=== PATIENT | male | born 1965 | race Caucasian/White ===

== ENCOUNTER 2018-03-28 02:35 | Inpatient (IN) | END 2018-03-30 16:11 | disposition home or self-care (01) | DRG 392 ==

== ENCOUNTER 2018-07-06 07:34 | Emergency (ER) | END 2018-07-06 08:49 | disposition home or self-care (01) ==

== ENCOUNTER 2018-11-08 19:46 | Emergency (ER) | payer BC ==
[~2018-11-08] VITALS: Wt 77.9 kg
[~2018-11-08 19:46] MED LIST: DOCU-144 PO; ESCI10TA PO; IBUP800T48 PO; METO-335 PO; PANT40TA3 PO; THIA100T56 PO; TRAM50TA2 PO
[2018-11-08] MEDS ORDERED: KETOROLAC 15 MG INJ IV STA (22:59)
[2018-11-08] MEDS ORDERED: AZITHROMYCIN 500MG/NS (PMX) 250 ML IV STA (22:59)
[2018-11-08] MEDS ORDERED: SOD CHLORIDE 0.9% 1,000 ML IV STA (22:59)
[2018-11-08] MEDS ORDERED: ONDANSETRON 4 MG INJ IV STA (22:59)
[2018-11-08] MEDS ORDERED: CEFTRIAXONE 1 GM/50 ML (PMX) 50 ML IVPB STA (22:59)
[2018-11-09] MEDS ORDERED: IBUP-1542 PO (00:38)
[2018-11-09] MEDS ORDERED: LEVO750T25 PO (00:38)
--- NOTE | 2018-11-09 00:39 | ERD ---
ER Documentation Chief Complaint Chief Complaint FEVER AND ABD PAIN FOR 1 WK. BLURRY VISION. ABD SWELLING, HX OF CIRRHOSIS HPI 53-year-old male presenting with cough, nasal congestion, sneezing, and sore throat for the past 1 week. For the past few days he has also had fever. He also complains of right lateral chest and abdominal pain with movement, started after he was coughing. He denies any other abdominal pain. He has brownish mucus when he coughs. No shortness of breath or chest pain. He does have chronic vomiting daily for about 1 year. No diarrhea or constipation. ROS All systems reviewed and are negative except as per history of present illness. Medications Home Meds Active Scripts Ibuprofen* (Motrin*) 600 Mg Tab, 600 MG PO Q6H PRN for PAIN AND OR ELEVATED TEMP, #30 TAB Prov:KAREN YOO MD 11/09/18 Levofloxacin* (Levaquin*) 750 Mg Tablet, 750 MG PO DAILY for 5 Days, TAB Prov:KAREN YOO MD 11/09/18 Tramadol HCl (Tramadol HCl) 50 Mg Tablet, 50 MG PO Q6 PRN for PAIN, #20 TAB Prov:ELENO GRISSOM PA-C 07/06/18 Ibuprofen* (Motrin*) 800 Mg Tab, 800 MG PO Q6, #30 TAB Prov:ELENO GRISSOM PA-C 07/06/18 Docusate Sodium* (Colace*) 100 Mg Capsule, 100 MG PO TID, #30 CAP Prov:ELENO GRISSOM PA-C 07/06/18 Escitalopram Oxalate* (Lexapro*) 10 Mg Tablet, 10 MG PO DAILY, #30 TAB Prov:FLORENTINO CASTANON 03/30/18 Thiamine* (Vitamin B-1*) 100 Mg Tablet, 100 MG PO DAILY for 30 Days, TAB Prov:FLORENTINO CASTANON 03/30/18 Pantoprazole* (Protonix*) 40 Mg Tablet.dr, 40 MG PO DAILY, #30 TAB Prov:FLORENTINO CASTANON 03/30/18 Metoprolol Succinate* (Toprol XL*) 25 Mg Tab.sr.24h, 25 MG PO DAILY for 30 Days Prov:FLORENTINO CASTANON 8/31/18 Allergies Allergies: Coded Allergies: No Known Allergy (Unverified , 03/27/18) PMhx/Soc History of Surgery: Yes (GALLBLADDER) Anesthesia Reaction: No Hx Neurological Disorder: No Hx Respiratory Disorders: No Hx Cardiac Disorders: No Hx Psychiatric Problems: No Hx Miscellaneous Medical Probl: Yes (KIDNEY STONES, CIRRHOSIS) Hx Alcohol Use: Yes (stopped 7 months ago) Hx Substance Use: No Hx Tobacco Use: Yes (4-5 cigarettes a day) Smoking Status: Current every day smoker FmHx Family History: No diabetes Physical Exam Vitals Vital Signs Date Temp Pulse Resp B/P (MAP) Pulse Ox O2 O2 Flow FiO2 Time Delivery Rate 11/08/18 100.3 87 20 144/66 98 19:54 (92) Physical Exam Const: No acute distress Head: Atraumatic Eyes: Bilateral mild conjunctival injection with no exudate or lid swelling ENT: Normal External Ears, Nose and Mouth. Posterior oropharynx with erythema, no swelling or exudate Neck: Full range of motion. No meningismus.no cervical lymphadenopathy Resp: Clear to auscultation bilaterally. No wheezing, rales, rhonchi Cardio: Regular rate and rhythm, no murmurs Abd: Soft, non tender, non distended. Normal bowel sounds Skin: No petechiae or rashes Back: No midline or flank tenderness Ext: No cyanosis, or edema Neur: Awake and alert Psych: Normal Mood and Affect Result Diagram: 11/08/18 2307 11/08/18 2307 Results 24 hrs Laboratory Tests Test 11/08/18 23:07 White Blood Count 6.1 10^3/ul Red Blood Count 4.35 10^6/ul Hemoglobin 13.5 g/dl Hematocrit 39.3 % Mean Corpuscular Volume 90.3 fl Mean Corpuscular Hemoglobin 31.0 pg Mean Corpuscular Hemoglobin Concent 34.4 g/dl Red Cell Distribution Width 13.4 % Platelet Count 117 10^3/UL Mean Platelet Volume 12.3 fl Immature Granulocytes % 0.200 % Neutrophils % 62.6 % Lymphocytes % 27.7 % Monocytes % 7.2 % Eosinophils % 1.8 % Basophils % 0.5 % Nucleated Red Blood Cells % 0.0 /100WBC Immature Granulocytes # 0.010 10^3/ul Neutrophils # 3.8 10^3/ul Lymphocytes # 1.7 10^3/ul Monocytes # 0.4 10^3/ul Eosinophils # 0.1 10^3/ul Basophils # 0.0 10^3/ul Nucleated Red Blood Cells # 0.0 10^3/ul Sodium Level 139 mmol/L Potassium Level 3.7 mmol/L Chloride Level 106 mmol/L Carbon Dioxide Level 23 mmol/L Anion Gap 10 Blood Urea Nitrogen 16 mg/dl Creatinine 0.80 mg/dl Est Glomerular Filtrat Rate mL/min > 60 mL/min Glucose Level 145 mg/dl Calcium Level 8.7 mg/dl Total Bilirubin 0.2 mg/dl Direct Bilirubin 0.00 mg/dl Indirect Bilirubin 0.2 mg/dl Aspartate Amino Transf (AST/SGOT) 23 IU/L Alanine Aminotransferase (ALT/SGPT) 33 IU/L Alkaline Phosphatase 57 IU/L Total Protein 6.4 g/dl Albumin 3.7 g/dl Globulin 2.70 g/dl Albumin/Globulin Ratio 1.37 Lipase 123 U/L Current Medications Medications Dose Sig/Sandeep Start Time Status Last (Trade) Ordered Route PRN Stop Time Admin Dose Reason Admin Ceftriaxone 50 ml @ ONCE STAT 11/08/18 DC 11/08/18 Sodium 100 mls/hr IVPB 22:59 23:44 11/08/18 23:28 Azithromycin 250 ml @ ONCE STAT 11/08/18 DC 11/09/18 250 mls/hr IV 22:59 00:27 11/08/18 23:58 Sodium 1,000 ml @ Q1H STAT 11/08/18 DC 11/08/18 Chloride 1,000 mls/hr IV 22:59 23:44 11/08/18 23:58 Ondansetron 4 mg ONCE STAT 11/08/18 DC 11/08/18 HCl (Zofran IV 22:59 23:44 Inj) 11/08/18 23:01 Ketorolac 15 mg ONCE STAT 11/08/18 DC 11/08/18 Tromethamine IV 22:59 23:44 (Toradol) 11/08/18 23:01 Procedures/MDM EMERGENT LABS AND DIAGNOSTIC STUDIES: Lab Results above were reviewed and interpreted by me. CBC: Mild thrombocytopenia, consistent with history of cirrhosis. No anemia or evidence of infection CMP: No evidence of clinically significant electrolyte abnormality, acidosis, renal failure, hypoglycemia, liver disease, or biliary obstruction Influenza negative Radiology Results as interpreted by Radiology below were reviewed by Franco Yoo MD: Chest X-ray 1V Interpreted by me: Soft Tissue: No acute abnormalities Bones: No acute abnormalities Mediastinum/Cardiac Silhouette/Lungs: No acute abnormalities Initial Nursing notes reviewed. Previous Medical Records requested via the Electronic Health Record. EMERGENCY DEPARTMENT COURSE / MEDICAL DECISION MAKING: Patient is presenting with symptoms consistent with bronchitis, likely viral or bacterial in etiology. I have a low suspicion for associated pneumonia. Given the patient's symptoms are worsening after 7 days and he is a smoker, he is at increased risk for bacterial infection. Vitals and respiratory status are stable. Patient is appropriate for outpatient treatment with antibiotics. Recommended continued follow up with PCP in the next 2 days. If symptoms are not improving or worsening, patient instructed to return to ED for repeat evaluation. Patient's blood pressure was elevated (>120/80) but appears stable without evidence of hypertensive emergency or urgency. The patient was counseled about the risks of hypertension and urged to pursue outpatient monitoring and therapy within a week with their primary care physician. Departure Diagnosis: Primary Impression: Lower respiratory tract infection Condition: Stable Patient Instructions: Bronchitis, Antiobiotic Treatment (Adult) [facility]errals[facility] Usted se leon hecho un examen mdico de control que le indica que no est en mary condicin que requiera tratamiento urgente en el Departamento de Emergencia. Un estudio ms profundo y el tratamiento de hunt condicin pueden esperar sin ningn riesgo hasta que usted sea atendida/o en el consultorio de hunt mdico o mary clnica. Es responsabilidad suya arreglar mary pancho para el seguimiento del farhat. MANEJO DE CONDICIONES NO URGENTES EN EL FUTURO 1) Si usted tiene un mdico de atencin primaria: Usted debera llamar a hunt mdico de atencin primaria antes de venir al departamento de emergencia. Despus de las horas de consultorio, hunt doctor o hunt asociado/a est disponible por telfono. El mdico o enfermero de dionisio en el servicio telefnico puede asesorarle por yazmin medio para atender el problema, o farhat contrario se puede programar mary pancho. 2) Si usted no tiene un mdico de atencin primaria: Llame al mdico o clnica de referencia que aparece abajo patience las horas de consultorio para hacer mary pancho para que le vean. CLINICAS: [place] [phone] [facility] [phone] [facility] [phone] [place] [phone] [facility] [address] [place] [phone] [place] [phone] Additional Instructions: Return to the ER if you are having any worsening symptoms. KAREN YOO MD Nov 09, 2018 00:39
[2018-11-09 00:53] VITALS: BP 112/65; PULSE 83; RESP 20
== END 2018-11-09 00:55 | disposition home or self-care (01) ==
LOC: E/R 19:46
DX: J22 Unspecified acute lower respiratory infection (principal); F17.210 Nicotine dependence, cigarettes, uncomplicated
CPT/HCPCS: 36415; 71045; 80053; 81003; 83690; 85025; 87040; 87400; 96374; 96375; J0456; J0696; J1885; J2405; J7030; Z7502; 87086

== ENCOUNTER 2019-01-18 13:17 | Emergency (ER) | payer SELFPAY ==
[~2019-01-18] VITALS: Ht 177.8 cm; Wt 76.6 kg
[~2019-01-18 13:17] MED LIST changes: +IBUP-1542 PO; +LEVO750T25 PO
[2019-01-18 13:24] VITALS: Ht 177.8 cm; Wt 76.6 kg
[2019-01-18] MEDS ORDERED: ONDANSETRON 4 MG INJ IV STA (13:47)
[2019-01-18] MEDS ORDERED: KETOROLAC 15 MG INJ IV STA (13:47)
[2019-01-18] MEDS ORDERED: morphine 4 MG/ML VIAL IV STA (13:47)
[2019-01-18] MEDS ORDERED: SOD CHLORIDE 0.9% 1,000 ML IV STA (13:47)
--- NOTE | 2019-01-18 14:22 | ERD ---
ER Documentation Chief Complaint Chief Complaint FALL FROM 10-FEET ON MON, STILL IN PAIN; BLOOD NOTED IN PHLEGM HPI 53-year-old man complains of continued right-sided chest pain, cough, blood- tinged sputum with cough x5 days status post falling from a 10 foot height about 5 days ago. After the fall he was seen and evaluated by occupational physician and states 3 separate chest x-rays were performed and all were negative. He was discharged with pain control, states he has been using his medications without relief. Chest pain is mostly in the anterior right chest and made worse with coughing or deep inspiration. Patient denies fevers or chills, no sore throat, no headache, no blurry vision, no complaints of abdominal pain, no vomiting or diarrhea. ROS All systems reviewed and are negative except as per history of present illness. Medications Home Meds Active Scripts Albuterol Sulfate* (Proair HFA*) 8.5 Gm Hfa.aer.ad, 2 PUFF INH Q6H PRN for WHEEZING AND SOB, #1 INHALER Prov:BEN KIMBROUGH MD 01/18/19 Oxycodone HCl/Acetaminophen (Percocet 5-325 mg Tablet) 1 Each Tablet, 1 EACH PO TID PRN for PAIN LEVEL 6-10, #12 TAB Prov:BEN KIMBROUGH MD 01/18/19 Ibuprofen* (Motrin*) 600 Mg Tab, 600 MG PO Q8 PRN for PAIN AND/OR INFLAMMATION, #60 TAB Prov:BEN KIMBROUGH MD 01/18/19 Ibuprofen* (Motrin*) 600 Mg Tab, 600 MG PO Q6H PRN for PAIN AND OR ELEVATED TEMP, #30 TAB Prov:KAREN PEACOCK MD 11/09/18 Levofloxacin* (Levaquin*) 750 Mg Tablet, 750 MG PO DAILY for 5 Days, TAB Prov:KAREN PEACOCK MD 11/09/18 Tramadol HCl (Tramadol HCl) 50 Mg Tablet, 50 MG PO Q6 PRN for PAIN, #20 TAB Prov:ELENO GRISSOM PA-C 07/06/18 Ibuprofen* (Motrin*) 800 Mg Tab, 800 MG PO Q6, #30 TAB Prov:ELENO GRISSOM PA-C 07/06/18 Docusate Sodium* (Colace*) 100 Mg Capsule, 100 MG PO TID, #30 CAP Prov:ELENO GRISSOM PA-C 07/06/18 Escitalopram Oxalate* (Lexapro*) 10 Mg Tablet, 10 MG PO DAILY, #30 TAB Prov:ALEJANDRO CASTANONA 03/30/18 Thiamine* (Vitamin B-1*) 100 Mg Tablet, 100 MG PO DAILY for 30 Days, TAB Prov:ZENTSEVA,FLORENTINO 03/30/18 Pantoprazole* (Protonix*) 40 Mg Tablet.dr, 40 MG PO DAILY, #30 TAB Prov:ZENTSEVA,FLORENTINO 03/30/18 Metoprolol Succinate* (Toprol XL*) 25 Mg Tab.sr.24h, 25 MG PO DAILY for 30 Days Prov:JENNIFERFLORENTINO 03/30/18 Allergies Allergies: Coded Allergies: No Known Allergy (Unverified , 01/18/19) PMhx/Soc Hypertension History of Surgery: Yes (GALLBLADDER) Anesthesia Reaction: No Hx Neurological Disorder: No Hx Respiratory Disorders: No Hx Cardiac Disorders: No Hx Psychiatric Problems: No Hx Miscellaneous Medical Probl: Yes (KIDNEY STONES, CIRRHOSIS) Hx Alcohol Use: Yes (stopped 7 months ago) Hx Substance Use: No Hx Tobacco Use: Yes (4-5 cigarettes a day) Smoking Status: Current every day smoker FmHx Family History: diabetes Physical Exam Vitals Vital Signs Date Temp Pulse Resp B/P (MAP) Pulse Ox O2 O2 Flow FiO2 Time Delivery Rate 01/18/19 98.3 68 16 129/82 98 15:47 (98) 01/18/19 98.3 74 16 141/85 98 15:21 (103) 01/18/19 98.3 84 16 148/84 98 13:24 (105) Physical Exam GENERAL: Well-developed, well-nourished, well-hydrated, moderate discomfort, afebrile HEENT: Moist mucous membranes, pink conjunctiva, no cervical spine tenderness or step-off deformities, no goiter, no jaundice or icterus, extraocular movements intact without pain. No submandibular induration, and no pharyngeal erythema NEURO: Alert and oriented 3, cranial nerves II through XII intact bilaterally, pupils equal round reactive to light, no focal deficits or facial asymmetry, sensation intact distally Strength 5/5 in upper and lower extremities bilaterally CARDIAC: Regular rate and rhythm, no murmurs rubs or gallops LUNGS: Clear bilaterally no wheezing crackles or stridor ABDOMEN: Soft nontender, no guarding, no rigidity, no rebound, no psoas sign no obturator sign. Normoactive bowel sounds SKIN: Warm and dry to touch, no abrasions, contusions, or hematomas, no lacerations, no ecchymosis, no target lesions, and without ulcers EXTREMITIES: No clubbing cyanosis or edema, calves are bilaterally symmetrical, no Homans sign, no popliteal cord sign. Distal pulses equal and bilateral PSYCH: Normal affect without agitation or irritability Result Diagram: 01/18/19 1357 01/18/19 1357 Results 24 hrs Laboratory Tests Test 01/18/19 13:57 White Blood Count 5.5 10^3/ul Red Blood Count 4.63 10^6/ul Hemoglobin 14.7 g/dl Hematocrit 42.3 % Mean Corpuscular Volume 91.4 fl Mean Corpuscular Hemoglobin 31.7 pg Mean Corpuscular Hemoglobin Concent 34.8 g/dl Red Cell Distribution Width 14.1 % Platelet Count 142 10^3/UL Mean Platelet Volume 11.9 fl Immature Granulocytes % 0.200 % Neutrophils % 59.8 % Lymphocytes % 31.2 % Monocytes % 5.9 % Eosinophils % 1.8 % Basophils % 1.1 % Nucleated Red Blood Cells % 0.0 /100WBC Immature Granulocytes # 0.010 10^3/ul Neutrophils # 3.3 10^3/ul Lymphocytes # 1.7 10^3/ul Monocytes # 0.3 10^3/ul Eosinophils # 0.1 10^3/ul Basophils # 0.1 10^3/ul Nucleated Red Blood Cells # 0.0 10^3/ul Prothrombin Time 12.1 Sec Prothrombin Time Ratio 0.9 INR International Normalized Ratio 0.89 Activated Partial Thromboplast Time 25.9 Sec Sodium Level 143 mmol/L Potassium Level 3.1 mmol/L Chloride Level 108 mmol/L Carbon Dioxide Level 28 mmol/L Anion Gap 7 Blood Urea Nitrogen 9 mg/dl Creatinine 0.81 mg/dl Est Glomerular Filtrat Rate mL/min > 60 mL/min Glucose Level 141 mg/dl Calcium Level 8.9 mg/dl Total Bilirubin 0.5 mg/dl Direct Bilirubin 0.00 mg/dl Indirect Bilirubin 0.5 mg/dl Aspartate Amino Transf (AST/SGOT) 27 IU/L Alanine Aminotransferase (ALT/SGPT) 56 IU/L Alkaline Phosphatase 60 IU/L Troponin I < 0.012 ng/ml Total Protein 5.8 g/dl Albumin 3.3 g/dl Globulin 2.50 g/dl Albumin/Globulin Ratio 1.32 Lipase 84 U/L Current Medications Medications Dose Sig/Sandeep Start Time Status Last (Trade) Ordered Route PRN Stop Time Admin Dose Reason Admin Sodium 1,000 ml @ Q1H STAT 01/18/19 DC 01/18/19 Chloride 1,000 mls/hr IV 13:47 14:03 01/18/19 14:46 Morphine 4 mg ONCE STAT 01/18/19 DC 01/18/19 Sulfate IV 13:47 14:03 (morphine) 01/18/19 13:52 Ondansetron 4 mg ONCE STAT 01/18/19 DC 01/18/19 HCl (Zofran IV 13:47 14:03 Inj) 01/18/19 13:52 Ketorolac 15 mg ONCE STAT 01/18/19 DC 01/18/19 Tromethamine IV 13:47 14:02 (Toradol) 01/18/19 13:52 Procedures/MDM IV line was established patient was placed on cardiac cath lab manager rhythm strip revealed a sinus rhythm at about 80 bpm with upright P and T waves. Patient was afebrile EKG performed, read by me revealed a normal sinus rhythm at 75 bpm, normal axis, right ventricular conduction delay QRS duration 104 ms, no concerning ST elevati ons or depressions noted One AP view of the chest performed, read by me reveals no acute infiltrates, normal mediastinum, sharp costophrenic and cardiac borders, no air under the diaphragm. Otherwise unremarkable chest x-ray. I administered 1 L normal saline IV, morphine 4 mg IV, Zofran 4 mg IV, and Toradol [address] scan of the chest was performed without contrast, no intrathoracic injury or pathology was noted. Please refer to radiologist dictation for full report. CBC and electrolytes are normal, liver function tests were normal, troponin was negative. Differential diagnoses considered, included but not limited to acute coronary syndrome, pulmonary embolism, aortic dissection, abdominal aortic aneurysm, sepsis, stroke, meningitis, encephalitis, pneumonia, appendicitis, demond cystitis, bowel obstruction, pyelonephritis, nephrolithiasis, cystitis, as well as metabolic, hematologic, and electrolyte abnormalities. As well as abscess, cellulitis, fractures, and dislocations. Patient feels much better at this time, and vital signs are normal, symptoms have improved. I did give strict instructions to return to the ED if symptoms continue or worsen, patient will otherwise follow-up with primary care physician. Patient understood instructions and agreed to plan. Disclaimer: Inadvertent spelling and grammatical errors are likely due to EHR/dictation software use and do not reflect on the overall quality of patient care. Also, please note that the electronic time recorded on this note does not necessarily reflect the actual time of the patient encounter. Departure Diagnosis: Primary Impression: Chest wall contusion Condition: Good BEN KIMBROUGH MD Jan 18, 2019 14:22
[2019-01-18] MEDS ORDERED: OXYC-279 PO (15:35)
[2019-01-18] MEDS ORDERED: ALBU8.5H8 INH (15:35)
[2019-01-18] MEDS ORDERED: IBUP-1542 PO (15:35)
[2019-01-18 15:47] VITALS: BP 129/82; PULSE 68; RESP 16
== END 2019-01-18 15:48 | disposition home or self-care (01) ==
LOC: E/R 13:17
DX: S20.211A Contusion of right front wall of thorax, initial encounter (principal); W18.39XA Other fall on same level, initial encounter; Y92.9 Unspecified place or not applicable
CPT/HCPCS: 36415; 71045; 71250; 80053; 83690; 84484; 85025; 85610; 85730; 96374; 96375; 99285; J1885; J2270; J2405; J7030; 93005

== ENCOUNTER 2019-03-20 19:22 | Emergency (ER) | payer SELFPAY ==
[~2019-03-20] VITALS: Ht 172.7 cm; Wt 77.0 kg
[~2019-03-20 19:22] MED LIST changes: +ALBU8.5H8 INH; +MAG355OR14 PO; +ONDA4TAB8 PO; +OXYC-279 PO
[2019-03-20 19:45] VITALS: Ht 172.7 cm; Wt 77.0 kg
[2019-03-20] MEDS ORDERED: LIDOCAINE/MYLANTA 40 ML BTL PO STA (20:22)
[2019-03-20] MEDS ORDERED: SOD CHLORIDE 0.9% 1,000 ML IV STA (20:22)
[2019-03-20] MEDS ORDERED: BELLADONNA/PHENOBARBITAL TAB PO STA (20:22)
[2019-03-20] MEDS ORDERED: ONDANSETRON 4 MG INJ IV STA (20:22)
[2019-03-20 22:00] VITALS: BP 114/78; PULSE 88; RESP 23
== END 2019-03-20 22:17 | disposition home or self-care (01) ==
LOC: E/R 19:22
DX: F10.920 Alcohol use, unspecified with intoxication, uncomplicated (principal); F17.210 Nicotine dependence, cigarettes, uncomplicated; K29.20 Alcoholic gastritis without bleeding; I10 Essential (primary) hypertension; Y90.6 Blood alcohol level of 120-199 mg/100 ml; E66.9 Obesity, unspecified; Z68.25 Body mass index [BMI] 25.0-25.9, adult
CPT/HCPCS: 36415; 80053; 80307; 82140; 83690; 84484; 85025; 85610; 85730; 96374; 99284; J2405; J7030